=== PATIENT | male | born 1995 | race African-American/Black ===

== ENCOUNTER 2024-04-29 11:18 | Emergency (ER) | payer OTHER ==
[~2024-04-29] VITALS: Ht 185.4 cm; Wt 82.6 kg
[2024-04-29 11:38] VITALS: BP 119/56; TEMP 98.1
[2024-04-29] MEDS ORDERED: IBUP-1955 PO (12:06)
[2024-04-29 12:09] VITALS: O2SAT 99
[2024-04-29] MEDS ORDERED: KETOROLAC TROMETHAMINE 15 MG/ML VIAL IM ONE (12:30)
== END 2024-04-29 12:11 | disposition home or self-care (01) ==
LOC: ER 11:33
DX: S93.692A Other sprain of left foot, initial encounter (principal); Z76.0 Encounter for issue of repeat prescription; Z79.899 Other long term (current) drug therapy; Z60.2 Problems related to living alone; X58.XXXA Exposure to other specified factors, initial encounter; Y93.01 Activity, walking, marching and hiking; Y92.89 Other specified places as the place of occurrence of the external cause; Y99.8 Other external cause status